=== PATIENT | female | born 1965 | race Caucasian/White ===

== ENCOUNTER 2020-10-07 15:29 | Emergency (ER) | payer OTHER, SELFPAY ==
[2020-10-07] VITALS (11 sets, daily range): BP systolic 160–195; BP diastolic 95–110; PULSE 78–87; RESP 16; TEMP 37.2; O2SAT 94–97; BMI 29.0
--- NOTE | 2020-10-07 15:37 | DI.CT.S_ITS ---
PROCEDURE: CT CERVICAL SPINE WO CON INDICATIONS: fall on face TECHNIQUE: Noncontrast 3 mm thick sections acquired from the skull base to the T4 level. Sagittal and coronal reformats were then constructed. For radiation dose reduction, the following was used: automated exposure control, adjustment of mA and/or kV according to patient size. COMPARISON: None. FINDINGS: Image quality: Excellent. Bones: No fractures or dislocations. Visualized superior ribs are intact. Soft tissues: Prevertebral soft tissues are normal in thickness. No paravertebral hematomas. No apical pneumothoraces. IMPRESSION: No trauma found. Chronic moderate degenerative disc disease at C5-6 and C6-7. No subluxation. Dictated by: Mp Roper M.D. on 10/07/2020 at 16:12 Approved by: Mp Roper M.D. on 10/07/2020 at 16:13
--- NOTE | 2020-10-07 15:37 | DI.CT.S_ITS ---
PROCEDURE: CT FACIAL BONES WO CON INDICATIONS: fall on face TECHNIQUE: Noncontrast 2.5 mm thick axial images acquired from the mandible through the frontal sinuses, with coronal and sagittal reformatting. For radiation dose reduction, the following was used: automated exposure control, adjustment of mA and/or kV according to patient size. COMPARISON: [facility], CT, CT CERVICAL SPINE WO CON, 10/07/2020, 15:44. [facility], CT, CT HEAD/BRAIN WO CON, 10/07/2020, 15:44. FINDINGS: Image quality: Excellent. Bones and teeth: There is a comminuted fracture of the right mandible involving the mandibular condyle, coronoid process extending to the ramus. There is widening of the right temporomandibular joint space with slight inferior subluxation of the mandibular condyle, possibly due to joint effusion. Orbital francis are intact. Sinus francis show no fracture or deformity. Nasal bones and septum are intact. Visualized portions of the mandible demonstrate no fractures or subluxation. Zygomatic arches are intact. Pterygoid plates are intact. Visualized portions of the skull base and auditory canals are intact. Sinuses: Paranasal sinuses are aerated, without fluid levels, mucosal thickening, or mucoceles. Mastoid air cells are aerated. Soft tissues: No edema, masses, or fluid collections. No enlarged lymph nodes. No soft tissue lacerations or debris. Vascular: Visualized vascular structures appear normal in the absence of contrast. Bony vascular foramina and canals are intact. IMPRESSION: 1. Comminuted fracture of the right mandible involving the mandibular condyle, coronoid process and ramus. There is widening of the right temporomandibular joint space with mild inferior subluxation of the mandibular condyle, probably secondary to joint effusion. Dictated by: Guido Virgen M.D. on 10/07/2020 at 16:17 Approved by: Guido Virgen M.D. on 10/07/2020 at 16:25
--- NOTE | 2020-10-07 15:37 | DI.CT.S_ITS ---
PROCEDURE: CT HEAD/BRAIN WO CON INDICATIONS: fall on face TECHNIQUE: Noncontrast 4.5 mm thick angled axial sections acquired from the foramen magnum to the vertex, with coronal and sagittal reformats. For radiation dose reduction, the following was used: automated exposure control, adjustment of mA and/or kV according to patient size. COMPARISON: None. FINDINGS: Image quality: Excellent. CSF spaces: Basal cisterns are patent. No extra-axial fluid collections. Ventricles are normal in size and shape. Brain: No midline shift. No intracranial masses or hemorrhage. Braga-white matter interface is normal. Skull and face: Calvarium and visualized facial bones are intact, without suspicious lesions. There is a comminuted right mandibular condylar fracture. Sinuses: Visualized sinuses and mastoids are clear. IMPRESSION: 1. No acute intracranial abnormalities. 2. Comminuted right mandibular condylar fracture. Please see separate CT facial bone report. Dictated by: Guido Virgen M.D. on 10/07/2020 at 16:14 Approved by: Guido Virgen M.D. on 10/07/2020 at 16:16
--- NOTE | 2020-10-07 15:39 | ED.FALL ---
HPI - Fall <Jahaira Nowak DO - Last Filed: 10/08/20 18:20> General Chief Complaint: Fall Stated Complaint: Slipped, hit face Time Seen by Provider: 10/07/20 15:37 Source: patient, family and EMS Mode of arrival: EMS Limitations: no limitations History of Present Illness HPI Narrative: Patient is a 55-year-old female who presents with fall and facial injury. She was getting off a boat when she fell on to [facility] landing on her chin and face. She is complaining of right-sided jaw pain which she says feels like her teeth do not line up. She really did not hit her head she has an obvious laceration under her chin. No loss of consciousness no nausea or vomiting no numbness tingling or weakness. Her biggest complaint is she feels like her teeth do not align. MD complaint: fall Onset (ago): minute(s) Fall from: standing Fall witnessed: yes, by family (Sister) Place fall occurred: other (doc) Loss of consciousness: none Context: tripped/slipped Related Data Previous Rx's Medication Instructions Recorded oxycodone-acetaminophen 1 tab PO Q6H PRN 7 Days #16 tab 10/07/20 Allergies Allergy/AdvReac Type Severity Reaction Status Date / Time No Known Drug Allergies Allergy Verified 10/07/20 16:07 Review of Systems <DO Fadi Acosta Last Filed: 10/08/20 18:20> Review of Systems Narrative: GENERAL: Denies chills, fatigue, malaise, fever, sweats, travel HEENT: See HPI RESPIRATORY: Denies dyspnea, cough, wheezing, hemoptysis, sputum. CARDIOVASCULAR: Denies chest pain, palpitations, orthopnea, edema GASTROINTESTINAL: Denies nausea, vomiting, abdominal pain, diarrhea, constipation, melena. : Denies dysuria, frequency, incontinence, hematuria, urinary retention, flank pain. MUSCULOSKELETAL: Denies weakness, joint pain, or bony pain SKIN: + chin laceration NEUROLOGIC: Denies weakness, dizziness, headache, numbness, change in speech, confusion PSYCHIATRIC: No concerning psychosocial issues. 12 point review of systems is negative except for those stated above and HPI Patient History <DO Fadi Acosta Last Filed: 10/08/20 18:20> Social History Smoking Status: Never smoker Exam <Jahaira Nowak DO - Last Filed: 10/08/20 18:20> Initial Vital Signs Initial Vital Signs: Vital Signs Temperature 99 F 10/07/20 15:29 Pulse Rate 78 10/07/20 15:29 Respiratory Rate 16 10/07/20 15:29 Blood Pressure 161/106 H 10/07/20 15:29 Pulse Oximetry 97 10/07/20 15:29 GENERAL: Well-appearing, well-nourished and in no acute distress. HEENT: Head normocephalic,, EOMI, pupils reactive, face symmetric, moist mucous membranes, tender right mandible teeth do not align able to bite down on popsicle stick however when she bites sign in the front it does break her bridge. No facial pain NECK: Supple, full range of motion, no step-offs, nontender on vertebrae. Full flexion extension and rotation no C-collar CARDIOVASCULAR: Regular rate and rhythm without murmurs, rubs or gallops. RESPIRATORY: Breath sounds equal bilaterally, no wheezes rales or rhonchi. No crepitations, no subcutaneous air, chest is nontender, no signs of trauma ABDOMEN: Soft, nontender. Normoactive bowel sounds all 4 quadrants. No guarding or rebound. BACK: Nontender vertebrae, no step-offs, no contusions PELVIS: stable. EXTREMITIES: Normal range of motion, no clubbing or edema. Right upper extremity: Within normal limits Left upper extremity: Within normal limits Right lower extremity: Within normal limits Left lower extremity:Within normal limits NEUROLOGICAL: Cranial nerves II through XII grossly intact. Normal gait and speech. SKIN: Laceration under chin on left side,1cm abrasion left lower lip <Rose Cordero MD - Last Filed: 10/08/20 03:31> Initial Vital Signs Initial Vital Signs: Vital Signs Temperature 99 F 10/07/20 15:29 Pulse Rate 78 10/07/20 15:29 Respiratory Rate 16 10/07/20 15:29 Blood Pressure 161/106 H 10/07/20 15:29 Pulse Oximetry 97 10/07/20 15:29 Procedures <Jahaira Nowak DO - Last Filed: 10/08/20 18:20> Laceration Repair Laceration 1: Site: face (chin) Side (If applicable): left Size (cm): 1 Description: linear Depth: simple, single layer Local Anesthetic: lidocaine 1% Amount of anesthesia used (mL): 2 Pre-repair: wound explored, irrigated extensively and deep structures intact Skin layer closed with: nylon Size (cm): 4-0 Number of sutures: 1 Technique: simple, interrupted Course <Jahaira Nowak DO - Last Filed: 10/08/20 18:20> Orders Ordered: Discontinued Medications Ibuprofen (Ibuprofen 400 Mg Tablet) 400 mg PO NOW ONE Stop: 10/07/20 20:49 Last Admin: 10/07/20 20:51 Dose: 400 mg Documented by: TRAMAINE Ketorolac Tromethamine (Ketorolac 30 Mg/Ml Vial) 30 mg IM NOW ONE Stop: 10/07/20 15:38 Last Admin: 10/07/20 15:43 Dose: 30 mg Documented by: KRISTINYLJAVIER Lidocaine HCl (Lidocaine 1% (Pf)) 2 ml SUBCUT NOW ONE Stop: 10/07/20 15:40 Last Admin: 10/07/20 16:09 Dose: 2 ml Documented by: TERRELL Morphine Sulfate (Morphine 4 Mg/Ml Inj) 4 mg SUBCUT NOW ONE Stop: 10/07/20 17:10 Last Admin: 10/07/20 17:19 Dose: 4 mg Documented by: TRAMAINE Ondansetron HCl (Ondansetron 4 Mg Odt) 4 mg SL NOW ONE Stop: 10/07/20 17:12 Last Admin: 10/07/20 17:19 Dose: 4 mg Documented by: TRAMAINE Oxycodone/Acetaminophen (Oxycodone/Acetaminophen 5/325 Tablet) 1 tab PO NOW ONE Stop: 10/07/20 20:23 Last Admin: 10/07/20 20:36 Dose: 1 tab Documented by: TRAMAINE Oxycodone/Acetaminophen (Oxycodone/Apap 5/325 Prepack) 1 bottle MISC SEEINSTR ONE Stop: 10/07/20 20:37 Last Admin: 10/07/20 20:41 Dose: 1 bottle Documented by: TRAMAINE Vital Signs Vital signs: Vital Signs - 8 hr 10/07/20 19:30 10/07/20 20:00 10/07/20 20:46 Pulse Rate 80 78 80 Respiratory Rate 16 Blood Pressure 161/99 H 165/105 H 160/95 H Pulse Oximetry 94 96 96 <Rose Cordero MD - Last Filed: 10/08/20 03:31> Orders Ordered: Discontinued Medications Ibuprofen (Ibuprofen 400 Mg Tablet) 400 mg PO NOW ONE Stop: 10/07/20 20:49 Last Admin: 10/07/20 20:51 Dose: 400 mg Documented by: TRAMAINE Ketorolac Tromethamine (Ketorolac 30 Mg/Ml Vial) 30 mg IM NOW ONE Stop: 10/07/20 15:38 Last Admin: 10/07/20 15:43 Dose: 30 mg Documented by: TERRELL Lidocaine HCl (Lidocaine 1% (Pf)) 2 ml SUBCUT NOW ONE Stop: 10/07/20 15:40 Last Admin: 10/07/20 16:09 Dose: 2 ml Documented by: TERRELL Morphine Sulfate (Morphine 4 Mg/Ml Inj) 4 mg SUBCUT NOW ONE Stop: 10/07/20 17:10 Last Admin: 10/07/20 17:19 Dose: 4 mg Documented by: TRAMAINE Ondansetron HCl (Ondansetron 4 Mg Odt) 4 mg SL NOW ONE Stop: 10/07/20 17:12 Last Admin: 10/07/20 17:19 Dose: 4 mg Documented by: TRAMAINE Oxycodone/Acetaminophen (Oxycodone/Acetaminophen 5/325 Tablet) 1 tab PO NOW ONE Stop: 10/07/20 20:23 Last Admin: 10/07/20 20:36 Dose: 1 tab Documented by: TRAMAINE Oxycodone/Acetaminophen (Oxycodone/Apap 5/325 Prepack) 1 bottle MISC SEEINSTR ONE Stop: 10/07/20 20:37 Last Admin: 10/07/20 20:41 Dose: 1 bottle Documented by: TRAMAINE Vital Signs Vital signs: Vital Signs - 8 hr 10/07/20 19:30 10/07/20 20:00 10/07/20 20:46 Pulse Rate 80 78 80 Respiratory Rate 16 Blood Pressure 161/99 H 165/105 H 160/95 H Pulse Oximetry 94 96 96 MDM - Fall <Jahaira Nowak DO - Last Filed: 10/08/20 18:20> Imaging Data CT scan - head: Radiologist's Impression: PROCEDURE: CT HEAD/BRAIN WO CON INDICATIONS: fall on face TECHNIQUE: Noncontrast 4.5 mm thick angled axial sections acquired from the foramen magnum to the vertex, with coronal and sagittal reformats. For radiation dose reduction, the following was used: automated exposure control, adjustment of mA and/or kV according to patient size. COMPARISON: None. FINDINGS: Image quality: Excellent. CSF spaces: Basal cisterns are patent. No extra-axial fluid collections. Ventricles are normal in size and shape. Brain: No midline shift. No intracranial masses or hemorrhage. Braga-white matter interface is normal. Skull and face: Calvarium and visualized facial bones are intact, without suspicious lesions. There is a comminuted right mandibular condylar fracture. Sinuses: Visualized sinuses and mastoids are clear. IMPRESSION: 1. No acute intracranial abnormalities. 2. Comminuted right mandibular condylar fracture. Please see separate CT facial bone report. Dictated by: Guido Virgen M.D. on 10/07/2020 at 16:14 CT - cervical spine: Radiologist's Impression: PROCEDURE: CT CERVICAL SPINE WO CON INDICATIONS: fall on face TECHNIQUE: Noncontrast 3 mm thick sections acquired from the skull base to the T4 level. Sagittal and coronal reformats were then constructed. For radiation dose reduction, the following was used: automated exposure control, adjustment of mA and/or kV according to patient size. COMPARISON: None. FINDINGS: Image quality: Excellent. Bones: No fractures or dislocations. Visualized superior ribs are intact. Soft tissues: Prevertebral soft tissues are normal in thickness. No paravertebral hematomas. No apical pneumothoraces. IMPRESSION: No trauma found. Chronic moderate degenerative disc disease at C5-6 and C6-7. No subluxation. Dictated by: Mp Roper M.D. on 10/07/2020 at 16:12 CT Facial: Radiologist's Impression: PROCEDURE: CT FACIAL BONES WO CON INDICATIONS: fall on face TECHNIQUE: Noncontrast 2.5 mm thick axial images acquired from the mandible through the frontal sinuses, with coronal and sagittal reformatting. For radiation dose reduction, the following was used: automated exposure control, adjustment of mA and/or kV according to patient size. COMPARISON: [facility], CT, CT CERVICAL SPINE WO CON, 10/07/2020, 15:44. [facility], CT, CT HEAD/BRAIN WO CON, 10/07/2020, 15:44. FINDINGS: Image quality: Excellent. Bones and teeth: There is a comminuted fracture of the right mandible involving the mandibular condyle, coronoid process extending to the ramus. There is widening of the right temporomandibular joint space with slight inferior subluxation of the mandibular condyle, possibly due to joint effusion. Orbital francis are intact. Sinus francis show no fracture or deformity. Nasal bones and septum are intact. Visualized portions of the mandible demonstrate no fractures or subluxation. Zygomatic arches are intact. Pterygoid plates are intact. Visualized portions of the skull base and auditory canals are intact. Sinuses: Paranasal sinuses are aerated, without fluid levels, mucosal thickening, or mucoceles. Mastoid air cells are aerated. Soft tissues: No edema, masses, or fluid collections. No enlarged lymph nodes. No soft tissue lacerations or debris. Vascular: Visualized vascular structures appear normal in the absence of contrast. Bony vascular foramina and canals are intact. IMPRESSION: 1. Comminuted fracture of the right mandible involving the mandibular condyle, coronoid process and ramus. There is widening of the right temporomandibular joint space with mild inferior subluxation of the mandibular condyle, probably secondary to joint effusion. Dictated by: Guido Virgen M.D. on 10/07/2020 at 16:17 MDM Narrative Medical decision making narrative: 1629 Dr. Ramirez the ENT updated on patient's symptoms at this time recommends transfer to oral surgery in [place] Patient he lives in [place] is post be going back to [place]. Images have been pushed [facility] waiting to hear back about mandible fracture. Continuing weight back to her from [facility] patient signed out to Dr. Cordero <Rose Cordero MD - Last Filed: 10/08/20 03:31> Medical Records Attestation: I reviewed the patient's medical records. Lab Data Attestation: I reviewed the patient's lab results. [facility] Narrative Medical decision making narrative: 55-year-old woman with a condylar fracture of her mandible after a fall. Care is reviewed with [facility] transfer center, given the lack of additional trauma and ability to open her mouth enough to eat and swallow she is safe for home discharge and will be contacted by the [facility] clinic for follow-up in the next couple of days. Findings reviewed with patient. Questions are answered and she is discharged home. Discharge Plan Departure Patient Disposition: Home Clinical Impression: Fracture of mandible Qualifiers: Encounter type: initial encounter Fracture type: closed Mandible location: condylar process Laterality: right Qualified Code(s): S02.611A - Fracture of condylar process of right mandible, initial encounter for closed fracture Instructions: DI for Jaw Fracture Activity Restrictions/Additional Instructions: I am sorry you had such an impressive fall today You did not break your neck and there is no bleeding inside your brain. You did break your jaw at the jaw joint. The CT scans that were done here today have been electronically sent down to [facility] for their review. Their recommendation was that you be discharged home with appropriate pain medication, soft diet and their [facility] ([facility]) clinic will call to schedule an appointment in their outpatient clinic. I gave them the phone number listed as [phone] With an outpatient evaluation they will tell you if you do need to have any type of surgical intervention to make sure that this fracture heals nicely. I wish you the best Prescriptions: New oxycodone-acetaminophen 5-325 mg tablet 1 tab PO Q6H PRN (Reason: pain) 7 Days Qty: 16 RF: 0
[2020-10-07] MEDS: KETOROLAC 30 MG/ML VIAL IM (15:43)
[2020-10-07] MEDS: LIDOCAINE 1% (PF) 2 ML SUBCUT (16:09)
[2020-10-07] MEDS: ONDANSETRON 4 MG ODT SL (17:19)
[2020-10-07] MEDS: MORPHINE 4 MG/ML INJ SUBCUT (17:19)
--- NOTE | 2020-10-07 17:54 | PC.NURSE ---
[address] Lea to chin.
[2020-10-07] MEDS: OXYCODONE/ACETAMINOPHEN 5/325 TABLET 1 TAB PO (20:36)
[2020-10-07] MEDS: OXYCODONE/APAP 5/325 PREPACK 1 BOTTLE MISC (20:41)
[2020-10-07] MEDS: IBUPROFEN 400 MG TABLET PO (20:51)
== END 2020-10-07 20:47 | disposition home or self-care (01) ==
PROVIDERS: Emergency Provider Emergency Medicine
DX: S02.611A Fracture of condylar process of right mandible, initial encounter for closed fracture (principal); W19.XXXA Unspecified fall, initial encounter
CPT/HCPCS: 12011; 70450; 70486; 72125; 96372; 99284; 99285; J1885; J2270